=== PATIENT | male | born 1995 | race Caucasian/White ===

== ENCOUNTER 2016-06-17 21:01 | Emergency (ER) | payer OTHER | END 2016-06-17 22:59 | disposition home or self-care (01) | LOC: FER 21:01 | DX: J10.1 Influenza due to other identified influenza virus with other respiratory manifestations (principal); I10 Essential (primary) hypertension; Z79.899 Other long term (current) drug therapy | CPT/HCPCS: 87450; 87804; 87899; 99283 ==

== ENCOUNTER 2020-12-20 12:06 | Emergency (ER) | payer OTHER ==
[~2020-12-20 12:06] MED LIST: ETODOLAC500 MG PO; NORCO 5-325 TA1 EACH PO; PERCOCET 5-3251 EACH PO; PRINIVIL20 MG PO; PROTONIX40 MG PO
[2020-12-20 13:31] LABS: BASOPHIL 0.6 % (0-2); EOSINOPHIL 1.6 % (0-5); HCT 48.3 % (42.0-52.0); HGB 16.6 g/dl (13.2-18.0); LYMPHOCYTE 39.3 % (15-48); MCH 30.9 pg (25.0-31.0); MCHC 34.4 g/dL (32.0-36.0); MCV 89.9 fL (78.0-100.0); MPV 9.9 fL (6.0-9.5); NEUTROPHIL 47.4 % (41-80); NRBC 0; PLT 263 K/uL (150-400); RBC 5.37 M/uL (4.70-6.00); RDW 12.5 % (11.5-14.0)
[2020-12-20 13:40] LABS: BUN/CREAT RATIO (CALC) 18.5 RATIO; CREATININE 0.92 mg/dL (0.67-1.17); POTASSIUM 4.4 mmol/L (3.5-5.1)
[2020-12-20] MEDS ORDERED: IBUPROFEN800 MG PO (15:29)
== END 2020-12-20 16:00 | disposition home or self-care (01) ==
LOC: FER 12:06
PROVIDERS: Nurse Practitioner Family
DX: K62.89 Other specified diseases of anus and rectum (principal); Z88.5 Allergy status to narcotic agent
CPT/HCPCS: 36415; 80048; 85025; J1200; J2270; J7030

== ENCOUNTER → 2020-12-28 | Day surgery (SDC) | payer OTHER ==
[~2020-12-28] VITALS: Ht 182.9 cm; Wt 167.8 kg
[~2020-12-28] MED LIST changes: +ACETAMINOPHEN500 M1 PO; +AUGMENTIN 500-1 EACH PO; +COLACE100 MG PO; +IBUPROFEN800 MG PO; +METRONIDAZOLE500 MG PO; +MOTRIN600 MG PO; +OXY-IR 5MG5 MG PO; +PROBIOTIC1 EAC1 PO
[2020-12-28 11:53] LABS: BUN/CREAT RATIO (CALC) 17.5 RATIO; CREATININE 0.8 mg/dL (0.67-1.17); POTASSIUM 4.2 mmol/L (3.5-5.1)
== END | disposition home or self-care (01) ==
LOC: FAS 09:50
PROVIDERS: Anesthesiology
DX: K61.1 Rectal abscess (principal); K64.9 Unspecified hemorrhoids; K21.9 Gastro-esophageal reflux disease without esophagitis; G47.30 Sleep apnea, unspecified; F41.9 Anxiety disorder, unspecified; F17.200 Nicotine dependence, unspecified, uncomplicated; Z88.5 Allergy status to narcotic agent; Z88.8 Allergy status to other drugs, medicaments and biological substances; Z79.1 Long term (current) use of non-steroidal anti-inflammatories (NSAID); Z79.2 Long term (current) use of antibiotics; Z79.899 Other long term (current) drug therapy
CPT/HCPCS: 36415; 80048; 87070; 87075; 87077; 87186; 87205; 93005; J0690; J1170; J1644; J2250; J2405; J2704; J3010; J7120

== ENCOUNTER → 2021-01-09 | Day surgery (SDC) | payer OTHER ==
[~2021-01-09] VITALS: Ht 182.9 cm; Wt 167.8 kg
== END | disposition home or self-care (01) ==
LOC: FAS 09:55
DX: K61.1 Rectal abscess (principal); I10 Essential (primary) hypertension; I35.0 Nonrheumatic aortic (valve) stenosis; E66.9 Obesity, unspecified; F41.9 Anxiety disorder, unspecified; F32.9 Major depressive disorder, single episode, unspecified; G47.30 Sleep apnea, unspecified; F17.210 Nicotine dependence, cigarettes, uncomplicated; Z68.43 Body mass index [BMI] 50.0-59.9, adult
CPT/HCPCS: J0690; J1170; J1644; J2250; J2405; J2704; J3010; J7120

== ENCOUNTER → 2021-02-22 | Day surgery (SDC) | payer OTHER ==
[~2021-02-22] VITALS: Ht 182.9 cm; Wt 167.8 kg
[~2021-02-22] MED LIST changes: +ULTRAM50 MG PO
== END | disposition home or self-care (01) ==
LOC: FAS 11:17
DX: K61.1 Rectal abscess (principal); G47.33 Obstructive sleep apnea (adult) (pediatric); F41.9 Anxiety disorder, unspecified; F32.A Depression, unspecified; I10 Essential (primary) hypertension; F17.200 Nicotine dependence, unspecified, uncomplicated; Z79.1 Long term (current) use of non-steroidal anti-inflammatories (NSAID); Z80.9 Family history of malignant neoplasm, unspecified; Z88.5 Allergy status to narcotic agent; Z88.8 Allergy status to other drugs, medicaments and biological substances; Z79.2 Long term (current) use of antibiotics; Z79.899 Other long term (current) drug therapy
CPT/HCPCS: J0690; J1170; J1644; J1885; J2250; J2704; J3010; J7120

== ENCOUNTER → 2021-04-08 | Day surgery (SDC) | payer OTHER ==
[~2021-04-08] VITALS: Ht 182.9 cm; Wt 158.8 kg
[~2021-04-08] MED LIST changes: +MIRALAX17 GM PO
== END | disposition home or self-care (01) ==
LOC: FAS 07:40
DX: K60.3 Anal fistula (principal); K64.4 Residual hemorrhoidal skin tags; G47.33 Obstructive sleep apnea (adult) (pediatric); F17.210 Nicotine dependence, cigarettes, uncomplicated; E66.01 Morbid (severe) obesity due to excess calories; Z68.43 Body mass index [BMI] 50.0-59.9, adult; Z88.5 Allergy status to narcotic agent
CPT/HCPCS: J0690; J1170; J1644; J1885; J2250; J2405; J2704; J3010; J7120